=== PATIENT | female | born 2000 | race African-American/Black ===

== ENCOUNTER 2024-03-04 08:56 | Emergency (ER) | payer SELFPAY ==
[2024-03-04] MEDS ORDERED: Ketorolac Tromethamine 30 MG (1 mL) VIAL ONE (09:49)
[2024-03-04] MEDS ORDERED: Dexamethasone 10 MG/ML VIAL ONE (09:49)
== END 2024-03-04 10:04 | disposition home or self-care (01) ==
LOC: CSHERS 08:56
DX: J02.9 Acute pharyngitis, unspecified (principal)
CPT/HCPCS: 87081; 87430; 96372; 99283; J1100; J1885

== ENCOUNTER 2024-12-30 12:22 | Emergency (ER) | payer OTHER, SELFPAY | END 2024-12-30 13:20 | disposition home or self-care (01) | LOC: CSHERS 12:22 | DX: Z20.822 Contact with and (suspected) exposure to COVID-19 (principal) | CPT/HCPCS: 87426; 99283 ==